=== PATIENT | male | born 1975 | race Caucasian/White ===

== ENCOUNTER 2021-06-25 12:25 | Emergency (ER) | payer BC, OTHER ==
[2021-06-25 12:37] VITALS: BP 156/108; PULSE 72; TEMP 97.9; BMI 37.3
[2021-06-25] MEDS ORDERED: SODIUM CHLORIDE 0.9% 1000 ML INFUS.BAG IV ONE (12:49)
[2021-06-25] MEDS ORDERED: METOCLOPRAMIDE HCL INJECTION 10 MG/2 ML VIAL IVPUSH ONE (12:49)
[2021-06-25] MEDS ORDERED: MECLIZINE HCL 25 MG TABLET (FP) PO ONE (12:50)
[2021-06-25] MEDS ORDERED: MECLIZINE HCL 25 MG TABLET (FP) ONE (13:27)
[2021-06-25] MEDS ORDERED: METOCLOPRAMIDE HCL INJECTION 10 MG/2 ML VIAL ONE (13:27)
[2021-06-25 13:58] LABS: MEAN PLT VOLUME 7.2 fl (7.5-11.1); RDW 13.2 % (11.9-15.9)
[2021-06-25 14:08] LABS: BASO % 0.9 % (0-2.0); EOS % 1.6 % (0-4.5); HEMOGLOBIN 15.8 GM/dl (11.7-16.9); LYMPH % 14.1 % (8-40); MCH 29.5 pg (25.7-33.7); MCHC 33.7 g/dl (32.0-35.9); MEAN CELL VOLUME 87.5 fl (80-96); MONO % 4.6 % (3.8-10.2); NEUT % 78.8 % (42.8-82.8); PLATELET COUNT 329 10^3/uL (134-434); RBC 5.36 M/mm3 (4.00-5.60); WHITE BLOOD COUNT 9.4 K/mm3 (4.0-10.8)
[2021-06-25 14:14] LABS: ACTIVATED PTT 26.6 SECONDS (25.2-36.5)
[2021-06-25 14:16] LABS: ALBUMIN 4.1 g/dl (3.4-5.0); BILIRUBIN,TOTAL 1.5 mg/dl (0.2-1); CALCIUM 9.5 mg/dl (8.5-10); CREATININE 0.9 mg/dl (0.55-1.3); TOT PROT 7.3 g/dl (6.4-8.2)
[2021-06-25 14:19] LABS: INR 1.09 (0.82-1.09); PROTHROMBIN TIME (PATIENT) 12.1 SEC (10.2-13.0)
== END 2021-06-25 15:55 | disposition home or self-care (01) ==
LOC: FER 12:25
PROC: 3E033GC Introduction of Other Therapeutic Substance into Peripheral Vein, Percutaneous Approach (ICD-10-PCS; principal; 2021-06-25)
DX: R42 Dizziness and giddiness (principal)
CPT/HCPCS: 36415; 70450-TC; 72125-TC; 80053; 85025; 85610; 85730; 93005; 99285-25

== ENCOUNTER 2023-06-18 16:32 | Emergency (ER) | payer BC ==
[2023-06-18 16:56] VITALS: PULSE 78; TEMP 98.2; BMI 37.6
[2023-06-18] MEDS ORDERED: FAMOTIDINE 20 MG/50 ML IVPB 20 MG/50 ML MG IVPB ONE ×2 (17:03→17:39)
[2023-06-18] MEDS ORDERED: MAG HYDROX/AL HYDROX/SIMETH 30 ML UNIT-DOSE CUP PO ONE (17:03)
[2023-06-18] MEDS ORDERED: ASPIRIN 81 MG CHEWABLE TABLETS PO ONE (17:03)
[2023-06-18] MEDS ORDERED: MAG HYDROX/AL HYDROX/SIMETH 30 ML UNIT-DOSE CUP ONE (17:27)
[2023-06-18] MEDS ORDERED: ASPIRIN 81 MG CHEWABLE TABLETS ONE (17:27)
[2023-06-18 17:54] LABS: INR 1.1 (0.83-1.09); PROTHROMBIN TIME (PATIENT) 12.8 SEC (9.7-13.0)
[2023-06-18 17:57] LABS: ACTIVATED PTT 33.5 SECONDS (25.2-36.5)
[2023-06-18 18:10] LABS: HEMOGLOBIN 15.9 G/dL (11.7-16.9); MCH 29.6 pg (25.7-33.7); MCHC 33.9 g/dl (32.0-35.9); MEAN CELL VOLUME 87.6 fl (80-96); MEAN PLT VOLUME 7.6 fl (7.5-11.1); PLATELET COUNT 286.4 10^3/uL (134-434); RBC 5.37 10^6/uL (4.00-5.60); RDW 14.8 % (11.9-15.9); WHITE BLOOD COUNT 8.3 10^3/uL (4.0-10.8)
[2023-06-18 18:19] LABS: ALBUMIN 4.5 g/dl (3.4-5.0); BLOOD UREA NITROGEN 15.7 mg/dl (7-18); CALCIUM 9.7 mg/dl (8.5-10.1); CREATININE 0.9 mg/dl (0.6-1.3); POTASSIUM 4.2 mmol/L (3.5-5.1); SGOT/AST 23.1 U/L (15-37); SGPT/ALT 39.8 U/L (7-52); TOT PROT 7.3 g/dl (6.4-8.2)
[2023-06-18 19:44] LABS: PLATELET ESTIMATE ADEQUATE
[2023-06-18 20:16] LABS: BILIRUBIN,TOTAL 0.6 mg/dL (0.2-1)
[2023-06-18 20:54] VITALS: BP 113/75; RESP 18
== END 2023-06-18 20:59 | disposition home or self-care (01) ==
LOC: FER 16:32
PROC: 3E033NZ Introduction of Analgesics, Hypnotics, Sedatives into Peripheral Vein, Percutaneous Approach (ICD-10-PCS; principal; 2023-06-18)
DX: M79.10 Myalgia, unspecified site (principal); R53.1 Weakness; R10.13 Epigastric pain; R07.9 Chest pain, unspecified; Z20.822 Contact with and (suspected) exposure to COVID-19
CPT/HCPCS: 0241U-QW; 36415; 71046-TC-FY; 80053; 83690; 83735; 84484; 85027; 85610; 85730; 93005; 99285-25